=== PATIENT | female | born 1965 | race Caucasian/White ===

== ENCOUNTER 2018-04-05 13:47 | Day surgery (SDC) | payer BC ==
[2018-04-05] VITALS (7 sets, daily range): BP systolic 107–134; BP diastolic 51–98; PULSE 53–58; TEMP 98.7
[~2018-04-05] VITALS: Ht 154.9 cm; Wt 65.5 kg
[2018-04-05] MEDS ORDERED: NORCO 325 MG-51 TAB PO (14:06)
[2018-04-05] MEDS ORDERED: PRINIVIL5 MG PO (14:06)
[2018-04-05] MEDS ORDERED: ADVIL200 MG PO (14:07)
== END 2018-04-05 18:05 | disposition home or self-care (01) ==
LOC: SDCO 13:47
DX: K31.5 Obstruction of duodenum (principal); K83.8 Other specified diseases of biliary tract; I10 Essential (primary) hypertension; Z88.8 Allergy status to other drugs, medicaments and biological substances; Z90.710 Acquired absence of both cervix and uterus; Z90.49 Acquired absence of other specified parts of digestive tract
CPT/HCPCS: C1769; J1885; J2175; J2405; J2704; J3010; J7120; Q9967

== ENCOUNTER 2018-07-05 13:19 | Day surgery (SDC) | payer BC ==
[~2018-07-05] VITALS: Ht 154.9 cm; Wt 65.5 kg
[~2018-07-05 13:19] MED LIST: ADVIL200 MG PO; NORCO 325 MG-51 TAB PO; PRINIVIL5 MG PO
[2018-07-05 14:02] VITALS: BP 134/89; PULSE 59; TEMP 98.4
[2018-07-05] MEDS ORDERED: PRINIVIL10 MG PO (14:04)
[2018-07-05 15:30] VITALS: BP 117/76; PULSE 60; TEMP 97.4
[2018-07-05 15:45] VITALS: BP 111/76; PULSE 63
[2018-07-05 16:00] VITALS: BP 115/66; PULSE 56
[2018-07-05 16:55] VITALS: BP 109/77; PULSE 61
== END 2018-07-05 16:27 | disposition home or self-care (01) ==
LOC: SDCO 13:19
DX: K83.8 Other specified diseases of biliary tract (principal); K31.5 Obstruction of duodenum; I10 Essential (primary) hypertension; Z88.8 Allergy status to other drugs, medicaments and biological substances; Z90.710 Acquired absence of both cervix and uterus; Z90.49 Acquired absence of other specified parts of digestive tract
CPT/HCPCS: C1769; J2250; J2405; J2704; J3010; J7120; Q9967

== ENCOUNTER → 2018-09-30 | Outpatient (CLI) | payer BC ==
[~2018-09-30] VITALS: Ht 154.9 cm; Wt 62.0 kg
[~2018-09-30] MED LIST changes: +PRINIVIL10 MG PO
[2018-09-30 10:05] VITALS: BP 135/99; PULSE 80
[2018-09-30 10:56] VITALS: BP 129/87; PULSE 79
--- NOTE | 2018-09-30 11:10 | NUR ---
PT FINISHED SNACK AND WAS TAKEN TO POV AMBULATORY WITH TO POV
== END ==
LOC: COL.RAD 09:00
DX: R59.0 Localized enlarged lymph nodes (principal)

== ENCOUNTER 2019-08-01 06:46 | Day surgery (SDC) | payer BC ==
[~2019-08-01] VITALS: Ht 154.9 cm; Wt 62.4 kg
[2019-08-01 07:06] VITALS: BP 139/97; PULSE 48; TEMP 97.9
[2019-08-01] MEDS ORDERED: PRIL40 PO (07:18)
[2019-08-01] MEDS ORDERED: MOTRIN 200200 MG/TAB PO (07:19)
[2019-08-01] MEDS ORDERED: ZOFRAN 4MG T4 MG/TAB PO (07:19)
[2019-08-01] MEDS ORDERED: CARAFATE 1GM1 G PO (07:19)
[2019-08-01] MEDS ORDERED: COLACE 100100 MG/CAP PO (07:21)
[2019-08-01 08:15] VITALS: BP 119/77; PULSE 61; TEMP 97.5
--- NOTE | 2019-08-01 08:15 | NUR ---
PATIENT TRANSPORTED TO BAY 1 FROM [facility] SU[address] [facility] ACCOMPANIED BY ENDO STAFF. PATIENT AMBULATED FROM CART TO CHAIR WITH 1 ASSIST WITH STEADY GAIT. VSS. PATIENT DENIES DISCOMFORT AND NAUSEA. VERBAL REPORT RECEIVED. AT BEDSIDE.
--- NOTE | 2019-08-01 08:25 | NUR ---
PATIENT GIVEN MUFFIN AND COKE. PATIENT DENIES C/O'S.
[2019-08-01 08:30] VITALS: BP 126/86; PULSE 67
--- NOTE | 2019-08-01 08:30 | NUR ---
VSS. PATIENT EATING AND DRINKING WITHOUT PROBLEMS. PATIENT STATES SHE IS STILL GROGGY.
--- NOTE | 2019-08-01 09:00 | NUR ---
VSS. PATIENT STATES SHE IS NAUSEATED. NOTIFIED DR JULIO VERBALLY REGARDING NAUSEA. RECEIVED VERBAL ORDER FOR IV ZOFRAN 4MG NOW. PATIENT GIVEN IV ZOFRAN NOW.
[2019-08-01 09:10] VITALS: BP 122/80; PULSE 55
[2019-08-01 09:15] VITALS: BP 125/78; PULSE 50
--- NOTE | 2019-08-01 09:26 | NUR ---
VSS. PATIENT STATES THAT NAUSEA IS IMPROVING. DENIES DISCOMFORT.
[2019-08-01 09:30] VITALS: BP 129/80; PULSE 58
--- NOTE | 2019-08-01 09:35 | NUR ---
VSS. PATIENT STATES THAT NAUSEA CONTINUES TO IMPROVE AND SHE IS READY TO GO HOME. DISCHARGE INSTRUCTIONS GIVEN VERBAL AND WRITTEN. PATIENT VOICES UNDERSTANDING. IV DC'D INTACT AND PRESSURE APPLIED. AT BEDSIDE AND IS DRIVING HOME.
== END 2019-08-01 09:40 | disposition home or self-care (01) ==
LOC: SDCO 06:46
DX: R11.2 Nausea with vomiting, unspecified (principal); Z88.8 Allergy status to other drugs, medicaments and biological substances; Z90.710 Acquired absence of both cervix and uterus; Z90.49 Acquired absence of other specified parts of digestive tract
CPT/HCPCS: J2250; J2405; J3010

== ENCOUNTER 2023-09-28 09:31 | Day surgery (SDC) | payer BC ==
[~2023-09-28] VITALS: Ht 156.2 cm; Wt 67.1 kg
[~2023-09-28 09:31] MED LIST changes: +CARAFATE 1GM1 G PO; +COLACE 100100 MG/CAP PO; +MOTRIN 200200 MG/TAB PO; +PRIL40 PO; +ZOFRAN 4MG T4 MG/TAB PO
[2023-09-28] MEDS ORDERED: TESSALON P100 MG/CAP PO (10:05)
[2023-09-28 10:22] VITALS: BP 131/82; PULSE 75; TEMP 97.9
[2023-09-28 12:28] VITALS: BP 108/73; PULSE 98; TEMP 98.9
[2023-09-28 12:30] VITALS: BP 121/72; PULSE 94
[2023-09-28 12:45] VITALS: BP 116/86; PULSE 93
[2023-09-28 13:00] VITALS: BP 126/79; PULSE 83
--- NOTE | 2023-09-28 13:20 | NUR ---
1228- PATIENT RETURNS TO [facility] VIA CART. PT AWAKE AND ALERT. PT HAS STRONG CONSTANT COUGH, SHE STATES THAT SHE DID HAVE A COUGH PRE-OP, BUT IT WAS A LITTLE STRONGER NOW. AMBULATED TO RECLINER CHAIR WITH 2:1 SBA. PT DENIES NAUSEA OR ABDOMINAL PAIN. HOOKED UP TO MONITOR AND VS OBTAINED. CALL LIGHT AT SIDE AND PRESENT. 1235- MD GAVE ORDERS FOR CLEAR LIQUIDS ONLY. PT GIVEN WATER AND APPLE JUICE AND SHE STATED THAT IT WAS HELPING HER COUGH QUITE A BIT AND THAT THE COLD FLUIDS FELT GOOD ON HER THROAT. 1240- D/C INSTRUCTIONS REVIEWED WITH PATIENT. PT VERBALIZED UNDERSTANDING AND A COPY OF INSTRUCTIONS PROVIDED IN D/C FOLDER. 1252- PATIENT DRESSES SELF. 1303- DR. JULIO IN ROOM SPEAKING WITH PATIENT. 1320- PT'S COUGH IMPROVED, BUT STILL HAD OCCASIONAL COUGH. PATIENT DISCHARGED FROM UNIT VIA W/C TO A PERSONAL VEHICLE. PT LEFT HOSPITAL IN STABLE CONDITION.
== END 2023-09-28 13:20 | disposition home or self-care (01) ==
LOC: SDCO 09:31
DX: K21.00 Gastro-esophageal reflux disease with esophagitis, without bleeding (principal); K22.2 Esophageal obstruction; K44.9 Diaphragmatic hernia without obstruction or gangrene; K22.10 Ulcer of esophagus without bleeding; K22.89 Other specified disease of esophagus
CPT/HCPCS: J2704; J7120

== ENCOUNTER 2024-07-18 14:03 | Day surgery (SDC) | payer BC ==
[~2024-07-18] VITALS: Ht 154.9 cm; Wt 67.3 kg
[~2024-07-18 14:03] MED LIST changes: +LR 1,000 ML IV SCH; +Ondansetron 4 MG/2 ML VIAL IV PRN; -PRINIVIL10 MG PO; +PRINIVIL20 MG PO; +TESSALON P100 MG/CAP PO
[2024-07-18 15:01] VITALS: BP 150/83; PULSE 55; TEMP 97.9
[2024-07-18] MEDS ORDERED: PROTONIX 40MG T40 MG PO (15:05)
[2024-07-18 16:05] VITALS: BP 151/90; PULSE 70; TEMP 97
--- NOTE | 2024-07-18 16:05 | NUR ---
PATIENT AMBULATED TO CHAIR WITH STEADY GAIT, ASSIST OF 2. ALERT AND AWAKE. DENIES PAIN, NAUSEA AND SHORTNESS OF BREATH. BREATHING REGULAR AND UNLABORED ON ROOM AIR. SKIN WARM AND DRY. IV IN PLACE. NURSE HANDOFF COMPLETED IN ROOM. SEE CHART FOR VITAL SIGNS. PATIENT HAD PEPSI AND A MUFFIN. BOTH FOOD AND DRINK TOLERATED WELL, NO DYSPHAGIA. CALL LIGHT IN REACH. SPOUSE PRESENT IN ROOM.
[2024-07-18 16:15] VITALS: BP 159/96; PULSE 55
[2024-07-18 16:30] VITALS: BP 158/73; PULSE 59
--- NOTE | 2024-07-18 16:38 | NUR ---
1625: MET WITH PATIENT AND SPOUSE IN ROOM TO DISCUSS PROCEDURE. 1630: DISCHARGE TEACHING COMPLETED WITH PRINTED EDUCATION AND INSTRUCTIONS SENT HOME WITH PATIENT. PATIENT VERBALIZED UNDERSTANDING OF TEACHING. 1636: IV REMOVED. GAUZE AND COBAN PLACED OVER SITE. 1638: PATIENT DISCHARGED HOME WITH SPOUSE TRANSPORT.
== END 2024-07-18 16:38 | disposition home or self-care (01) ==
LOC: SDCO 14:03
DX: K22.2 Esophageal obstruction (principal); K21.9 Gastro-esophageal reflux disease without esophagitis; K31.7 Polyp of stomach and duodenum
CPT/HCPCS: C1726; J2704; J7120